=== PATIENT | female | born 2000 | race Caucasian/White ===

== ENCOUNTER 2018-08-18 10:51 | Inpatient (IN) | payer OTHER ==
[~2018-08-18] VITALS: Ht 160 cm; Wt 76.9 kg
[2018-08-18 11:00] VITALS: BP 104/58
[2018-08-18] MEDS ORDERED: MORPHINE SULFATE 4 MG/ML VIAL. IV PRN (11:30)
--- NOTE | 2018-08-18 12:29 | PDOC2 ---
CONSULT Date of Consult Date of Consult DATE: 08/18/18 TIME: 12:21 Reason for Consult Reason for Consult: RLQ abd pain Referring Physician Referring Physician: Arnie Identification/Chief Complaint Chief Complaint RLQ abd pain Source Source: Chart review, Patient History of Present Illness Reason for Visit: 18 yo F with c/o RLQ abd pain beginning at 0200 today. Presented to ER at [facility] transferred to [facility]. Reports diffuse intermittent abd pain last few weeks. No N/V. Normal stools, but has had some constipation. No sick contacts. No previous endoscopy. Past Medical History Past Medical History recent and delivery, breast feeding Past Surgical History Past Surgical History: No pertinent history Family History Family History: Diabetes, Heart Disease Social History No ALCOHOL: none Current Medications Current Medications Current Medications Sodium Chloride 1,000 ml @ 100 mls/hr Q10H IV ; Start 08/18/18 at 11:30 Morphine Sulfate (Morphine Sulfate) 4 mg PRN Q2HR PRN IV PAIN; Start 08/18/18 at 11:30 Oxycodone/ Acetaminophen (Percocet 5/325) 1 tab PRN Q6HRS PRN PO PAIN; Start 08/18/18 at 11:30 Allergies Allergies: Coded Allergies: No Known Drug Allergies (Unverified , 08/18/18) ROS Gastrointestinal: Yes Abdominal Pain Physical Exam General: Alert, Oriented X3, Cooperative, No acute distress HEENT: Atraumatic Lungs: Normal air movement Abdomen: Soft, Other (mild TTP RLQ) Extremities: No clubbing, No cyanosis Skin: No rashes, No breakdown Neuro: Normal speech, Sensation intact Psych/Mental Status: Mental status NL, Mood NL Vitals VITALS Vital Signs Date Time Temp Pulse Resp B/P (MAP) Pulse Ox O2 Delivery O2 Flow Rate FiO2 08/18/18 11:00 98.1 79 18 104/58 (73) 96 Room Air 98.1 Labs Labs WBC 10 at [facility] Images Images CT reviewed with radiology-appears to have normal appendix, cecal wall thickening, free fluid RLQ, gallstones Assessment/Plan Assessment/Plan Suspect colitis-recommend abx and bowel rest, supportive care. Will value GI assessment. Will check CEA level, although colon mass low probability. May benefit from colonoscopy, but will defer to GI. May benefit from stool studies , but will defer to GI. Appendix appears to be unremarkable, by what can be seen on CT. If not improved, will consider exploration. Does not appear to have any pain referable to biliary system. Thanks for consult! MICKEY ESCOBEDO MD Aug 18, 2018 12:29
[2018-08-18] MEDS: IV NORMAL SALINE 1000ML BAG 1,000 ML IV SCH (12:33)
--- NOTE | 2018-08-18 13:54 | PDOC2 ---
MARKY MURRAY 08/18/18 1354: GI CONSULT Reason For Consult: Colon mass on CT HPI: HPI: 18 y/o female from [facility]. Acute onset of RLQ pain at 2:00 a.m. Labs: normal WBC, Hgb 11.7, normal LFTs except Alk Vivian 188, normal lipase. On CT: masslike wall thickening at anterior aspect of ascending colon including cecal region w/ adjacent edema and free fluid w/ borderline dilated appendix. Also noted contracted GB w/ gallstones and mild prominence of intrahepatic bile ducts w/ possible stones within the GB neck to cystic bile duct region and mild full ness of right adnexa. Surgery following, reviewed note - CT reviewed w/ radiology w/ normal appendix and cecal wall thickening. Suspects colitis, checking CEA level. She tells me no GI history. Had some reflux during (gave to baby girl Rafaela 1 month ago). No dysphagia, n/v, chronic abd pain, diarrhea, or melena. Had some constipation - had two stools yesterday, noted a little red blood with the first. No previous scopes. No GB, liver, or pancreas history she's aware of. PMH: PMH: denies FH: Family History: Other (mother - cholecystectomy, cousin - "always plugged up") Social History: Smoke: No ALCOHOL: none ROS: GEN: Denies fevers, chills, sweats HEENT: Denies blurred vision, sore throat CV: Denies chest pain RESP: Denies shortness of air, cough GI: Per HPI : Denies hematuria, dysuria ENDO: Denies weight changes NEURO: Denies confusion, dizziness MSK: Denies weakness, joint pain/swelling SKIN: Denies jaundice, pruritus Vitals: Vitals: Vital Signs Date Time Temp Pulse Resp B/P (MAP) Pulse Ox O2 Delivery O2 Flow Rate FiO2 08/18/18 12:34 96 Room Air 08/18/18 11:00 98.1 79 18 104/58 (73) 98.1 Labs: Labs: Per HPI. Allergies: Coded Allergies: No Known Drug Allergies (Unverified , 08/18/18) Medications: Current Medications Medications (Trade) Dose Ordered Sig/Abdulkadir Route PRN Reason Start Time Stop Time Status Last Admin Dose Admin Sodium Chloride 1,000 ml @ 100 mls/hr Q10H IV 08/18/18 11:30 08/18/18 12:33 Morphine Sulfate (Morphine Sulfate) 4 mg PRN Q2HR PRN IV PAIN 08/18/18 11:30 08/18/18 12:34 Imaging: Imaging: Per HPI. PE: GEN: NAD - giving baby a bottle HEENT: Atraumatic, PERRL LUNGS: CTAB HEART: RRR ABD: NABS, S/ND, right mid abdomen to RLQ discomfort EXTREMITY: No edema SKIN: No rashes, no jaundice NEURO/PSYCH: A & O 3 A/P: A/P: RLQ pain Abnormal CT - thickening in right colon/cecum (?dilated appendix), also noted gallstones -- Not having diarrhea - in fact, seems more constipated. Reviewed w/ Dr. Matos earlier - observe on atbx for now, surgery following - consider exploration or colonoscopy later on. ARTURO MATOS MD 08/18/18 1357: MARKY MURRAY Aug 18, 2018 13:54 ARTURO MATOS MD Aug 18, 2018 13:57
--- NOTE | 2018-08-18 14:21 | PDOC1 ---
History and Physical Date of Admission Date of Admission DATE: 08/18/18 TIME: 14:18 Source Source: Chart review, Patient History of Present Illness History of Present Illness Ms. Pedro has is 6 weeks post-, awoke this AM with severe RLQ pain , abd pain diffuse Surgery has seen, CT reviewed, discussed with GI new RLQ mass or edema, poss colitis, poss atypical appy, but pain improving , Past Medical History Cardiovascular: No pertinent hx Pulmonary: No pertinent hx GI: No pertinent hx Hepatobiliary: No pertinent hx Psych: No pertinent hx Grav: 1 Para: 1 Past Surgical History Past Surgical History: No pertinent history Family History Family History: Diabetes, Heart Disease Social History Smoke: No ALCOHOL: none Current Medications Current Medications Current Medications Sodium Chloride 1,000 ml @ 100 mls/hr Q10H IV Last administered on 08/18/18at 12:33; Start 08/18/18 at 11:30 Morphine Sulfate (Morphine Sulfate) 4 mg PRN Q2HR PRN IV PAIN Last administered on 08/18/18at 12:34; Start 08/18/18 at 11:30 Oxycodone/ Acetaminophen (Percocet 5/325) 1 tab PRN Q6HRS PRN PO PAIN; Start 08/18/18 at 11:30 Ciprofloxacin (Cipro) 500 mg BID PO ; Start 08/18/18 at 14:00 Metronidazole (Flagyl) 500 mg Q12HR PO ; Start 08/18/18 at 14:00 Allergies Allergies: Coded Allergies: No Known Drug Allergies (Unverified , 08/18/18) ROS General: No: Chills, Night Sweats, Fatigue, Malaise, Appetite, Other PSYCHOLOGICAL ROS: No: Anxiety, Behavioral Disorder, Concentration difficultie , Decreased libido, Depression, Disorientation, Hallucinations, Hostility, Irritablity, Memory difficulties, Mood Swings, Obsessive thoughts, Physical abuse, Sexual abuse, Sleep disturbances, Suicidal ideation, Other Eyes: No Blurry vision, No Decreased vision, No Double vision, No Dry eyes, No Excessive tearing, No Eye Pain, No Itchy Eyes, No Loss of vision, No Photophobia , No Scotomata, No Uses contacts, No Uses glasses, No Other HEENT: No: Heacaches, Visual Changes, Hearing change, Nasal congestion, Nasal discharge, Oral lesions, Sinus pain, Sore Throat, Epistaxis, Sneezing, Snoring, Tinnitus, Vertigo, Vocal changes, Other Respiratory: YES: Cough; No: Hemoptysis, Orthopnea, Pleuritic Pain, Shortness of breath, SOB with excertion, Sputum Changes, Stridor, Tachypnea, Wheezing, Other Cardiovascular: No Chest Pain, No Palpitations, No Orthopnea, No Paroxysmal Noc. Dyspnea, No Edema, No Lt Headedness, No Other Gastrointestinal: Yes Nausea, Yes Abdominal Pain; No Vomiting, No Diarrhea, No Constipation, No Melena, No Hematochezia, No Other Genitourinary: No Dysuria, No Frequency, No Incontinence, No Hematuria, No Retention, No Discharge, No Urgency, No Pain, No Flank Pain, No Other, No , No , No , No , No , No , No Musculoskeletal: No Gait Disturbance, No Joint Pain, No Joint Stiffness, No Joint Swelling, No Muscle Pain, No Muscular Weakness, No Pain In:, No Swelling In:, No Other Neurological: No Behavorial Changes, No Bowel/Bladder ControlChng, No Confusion , No Dizziness, No Gait Disturbance, No Headaches, No Impaired Coord/balance, No Memory Loss, No Numbness/Tingling, No Seizures, No Speech Problems, No Tremors, No Visual Changes, No Weakness, No Other Skin: No Dry Skin, No Eczema, No Hair Changes, No Lumps, No Mole Changes, No Mottling, No Nail Changes, No Pruritus, No Rash, No Skin Lesion Changes, No Other, No Acne Physical Exam General: Alert, Cooperative, No acute distress HEENT: PERRLA, EOMI Lungs: Clear to auscultation Heart: S1S2, no murmurs Abdomen: Soft, Other (tender RLQ) Extremities: No clubbing Skin: No rashes, No breakdown Neuro: Normal gait, Normal tone Psych/Mental Status: Mood NL Vitals Vitals Vital Signs Date Time Temp Pulse Resp B/P (MAP) Pulse Ox O2 Delivery O2 Flow Rate FiO2 08/18/18 12:34 96 Room Air 08/18/18 11:00 98.1 79 18 104/58 (73) 98.1 Labs Labs : normal WBC, Hgb 11.7, normal LFTs except Alk Vivian 188, normal lipase. VTE Prophylaxis Ordered VTE Prophylaxis Devices: No VTE Pharmacological Prophylaxi: No Assessment/Plan Assessment/Plan Acute abdominal pain, new RLQ pain that is possibly improved On CT: masslike wall thickening at anterior aspect of ascending colon including cecal region w/ adjacent edema and free fluid w/ borderline dilated appendix. Also noted contracted GB w/ gallstones and mild prominence of intrahepatic bile ducts w/ possible stones within the GB neck to cystic bile duct region and mild full ness of right adnexa. GI and Colon consult PORFIRIO GOODSON MD Aug 18, 2018 14:21
[2018-08-18 15:00] VITALS: BP 115/73
[2018-08-18] MEDS: metroNIDAZOLE 500 MG TABLET PO SCH ×2 (16:07→21:29)
[2018-08-18] MEDS: CIPROFLOXACIN HCL 250 MG TABLET. PO SCH ×2 (16:07→21:29)
[2018-08-18] MEDS: oxyCODONE/APAP 5/325 1 TAB TABLET PO PRN (16:37)
[2018-08-18 19:00] VITALS: BP 110/71
[2018-08-18] MEDS ORDERED: PROMETHAZINE 12.5 MG TABLET. PO PRN (20:00)
[2018-08-18] MEDS ORDERED: ONDANSETRON PF 4 MG/2 ML VIAL. IV PRN (20:00)
[2018-08-18 23:00] VITALS: BP 116/70
[2018-08-19] MEDS: IV NORMAL SALINE 1000ML BAG 1,000 ML IV SCH ×2 (01:16→07:30)
[2018-08-19 03:00] VITALS: BP 100/62
[2018-08-19] MEDS: oxyCODONE/APAP 5/325 1 TAB TABLET PO PRN ×3 (04:45→20:37)
[2018-08-19 07:15] VITALS: BP 114/73
[2018-08-19] MEDS: CIPROFLOXACIN HCL 250 MG TABLET. PO SCH (08:02)
[2018-08-19] MEDS: metroNIDAZOLE 500 MG TABLET PO SCH ×2 (08:02→20:36)
--- NOTE | 2018-08-19 08:41 | PDOC ---
SURGICAL PROGRESS NOTE Subjective Pt with c/o unchanged RLQ abd pain, no N/V, no stools Vital Signs Vital Signs Date Time Temp Pulse Resp B/P (MAP) Pulse Ox O2 Delivery O2 Flow Rate FiO2 08/19/18 07:15 99.5 98 16 114/73 (87) 93 Room Air 99.5 I&O Intake and Output 08/19/18 07:00 Intake Total 1200 ml Balance 1200 ml Intake Oral 0 ml IV Total 1200 ml # Voids 6 General: Alert, Oriented X3, Cooperative, No acute distress Abdomen: Soft, Other (TTP RLQ) Problem List RLQ abd pain cont abx appreciate GI, defer additional testing to them. MICKEY ESCOBEDO MD Aug 19, 2018 08:41
[2018-08-19 11:00] VITALS: BP 105/70
--- NOTE | 2018-08-19 12:34 | PDOC ---
PROGRESS NOTES Chief Complaint Chief Complaint acute abd pain RLQ pain post 4 weeks poss microperf or meckels, or diverticulitis, consult ID discussed with IR, not sure if enough free fluid to have any benefit of drainage History of Present Illness History of Present Illness CT READ FROM 08/18, Masslike wall thickening is identified at the anterior aspect of the ascending colon including the cecal region with adjacent edema and free fluid. In addition the patient's appendix is visualized in this region and is borderline dilated measuring up to approximately 6-7 mm. Given the masslike thickening of the colon the colonic process appears to be the dominant inflammatory process within the region and this area of masslike thickening could be secondary to a focal colitis. A colonic neoplasm would be rare in a patient of this age but this does have a focal masslike appearance therefore a follow-up could be obtained to ensure this resolves to exclude neoplastic causes. The patient's appendix is also seen adjacent to this region and is borderline dilated and does extend through the region of edema and fluid. Given the borderline size as well as the adjacent edema and fluid additional inflammation to the appendix from appendicitis is possible however this finding does appear less severe than the adjacent colonic process. Vitals Vitals Vital Signs Date Time Temp Pulse Resp B/P (MAP) Pulse Ox O2 Delivery O2 Flow Rate FiO2 08/19/18 11:00 97.7 81 16 105/70 (82) 96 Room Air 97.7 Physical Exam General: Alert, Oriented X3, Cooperative, No acute distress Abdomen: Soft, Other (TTP RLQ) Extremities: No clubbing Skin: No rashes, No breakdown Comment Review of Relevant I have reviewed the following items david (where applicable) has been applied. Medications Current Medications Sodium Chloride 1,000 ml @ 100 mls/hr Q10H IV Last administered on 08/19/18at 01:16; Start 08/18/18 at 11:30 Morphine Sulfate (Morphine Sulfate) 4 mg PRN Q2HR PRN IV PAIN Last administered on 08/18/18 12:34; Start 08/18/18 at 11:30 Oxycodone/ Acetaminophen (Percocet 5/325) 1 tab PRN Q6HRS PRN PO PAIN Last administered on 08/19/18 04:45; Start 08/18/18 at 11:30 Ciprofloxacin (Cipro) 500 mg BID PO Last administered on 08/19/18at 08:02; Start 08/18/18 at 14:00 Metronidazole (Flagyl) 500 mg Q12HR PO Last administered on 08/19/18at 08:02; Start 08/18/18 at 14:00 Ondansetron HCl (Zofran) 4 mg PRN Q6HRS PRN IV NAUSEA/VOMITING 1ST CHOICE Last administered on 08/18/18at 20:31; Start 08/18/18 at 20:00 Promethazine HCl (Phenergan) 12.5 mg PRN Q6HRS PRN PO NAUSEA/VOMITING 2ND CHOICE; Start 08/18/18 at 20:00 Lactobacillus Rhamnosus (Culturelle) 1 cap BID PO ; Start 08/19/18 at 21:00 Vitals/I & O Vital Sign - Last 24 Hours 08/18/18 08/18/18 08/18/18 08/18/18 12:34 13:00 15:00 16:37 Temp 98.8 98.8 Pulse 75 Resp 18 B/P (MAP) 115/73 (87) Pulse Ox 96 96 98 98 O2 Delivery Room Air Room Air Room Air Room Air 08/18/18 08/18/18 08/18/18 08/19/18 19:00 20:00 23:00 03:00 Temp 97.5 97.7 97.9 97.5 97.7 97.9 Pulse 72 63 81 Resp 18 18 18 B/P (MAP) 110/71 (84) 116/70 (85) 100/62 (75) Pulse Ox 95 96 93 O2 Delivery Room Air Room Air Room Air Room Air 08/19/18 08/19/18 08/19/18 08/19/18 04:45 05:45 07:00 07:15 Temp 99.5 99.5 Pulse 98 Resp 20 20 16 B/P (MAP) 114/73 (87) Pulse Ox 93 93 93 O2 Delivery Room Air Room Air Room Air Room Air 08/19/18 11:00 Temp 97.7 97.7 Pulse 81 Resp 16 B/P (MAP) 105/70 (82) Pulse Ox 96 O2 Delivery Room Air Intake and Output 08/18/18 08/18/18 08/19/18 15:00 23:00 07:00 Intake Total 1200 ml Balance 1200 ml PORFIRIO GOODSON MD Aug 19, 2018 12:34
--- NOTE | 2018-08-19 12:45 | PDOC ---
Subjective: Subjective: Feels the same. RLQ pain, also some LLQ and in the middle. No stools, no nausea. Hasn't eaten. Objective: Vital Signs: Vital Signs Date Time Temp Pulse Resp B/P (MAP) Pulse Ox O2 Delivery O2 Flow Rate FiO2 08/19/18 12:32 Room Air 08/19/18 11:00 97.7 81 16 105/70 (82) 96 97.7 PE: GEN: NAD LUNGS: CTAB HEART: RRR ABD: RLQ, periumbilical, and LLQ discomfort NEURO/PSYCH: A & O 3 A/P: RLQ pain w/ abnormal CT -- Reviewed w/ Propeck - check Meckel's scan. Plans to recheck labs. MARKY MURRAY Aug 19, 2018 12:45
[2018-08-19 13:48] LABS: BASO % 1 % (0-3); EOS # 0.1 x10^3/uL (0.0-0.7); EOS % 2 % (0-3); HEMATOCRIT 30.5 % (36.0-47.0); HEMOGLOBIN 9.8 g/dL (12.0-15.5); LYMPH # 1.3 x10^3/uL (1.0-4.8); LYMPH % 19 % (24-48); MEAN CORPUSCULAR HEMOGLOBIN 24 pg (25-35); MEAN CORPUSCULAR HGB CONC 32 g/dL (31-37); MEAN CORPUSCULAR VOLUME 74 fL (79-100); MONO # 0.7 x10^3/uL (0.0-1.1); MONO % 10 % (0-9); NEUT # 4.7 x10^3uL (1.8-7.7); NEUT % 68 % (31-73); PLATELET COUNT 283 x10^3/uL (140-400); RED CELL DISTRIBUTION WIDTH 18.4 % (11.5-14.5); WHITE BLOOD COUNT 6.8 x10^3/uL (4.0-11.0)
[2018-08-19 13:55] LABS: ALBUMIN 2.6 g/dL (3.4-5.0); ALBUMIN/GLOBULIN RATIO 0.6 (1.0-1.7); CREATININE 0.7 mg/dL (0.6-1.0); GFR 106.7; POTASSIUM 3.9 mmol/L (3.5-5.1); TOTAL BILIRUBIN 0.3 mg/dL (0.2-1.0); TOTAL PROTEIN 7.3 g/dL (6.4-8.2)
[2018-08-19] MEDS: AMINO AC 3%/ELECTROLYTE/GLYCER 1,000 ML IV SCH (13:56)
--- NOTE | 2018-08-19 14:13 | PDOC ---
Infectious Disease Note Vital Sign Vital Signs Vital Signs Date Time Temp Pulse Resp B/P (MAP) Pulse Ox O2 Delivery O2 Flow Rate FiO2 08/19/18 13:54 Room Air 08/19/18 11:00 97.7 81 16 105/70 (82) 96 97.7 Labs Lab Laboratory Tests Test 08/19/18 13:20 White Blood Count 6.8 x10^3/uL (4.0-11.0) Red Blood Count 4.10 x10^6/uL (3.50-5.40) Hemoglobin 9.8 g/dL (12.0-15.5) Hematocrit 30.5 % (36.0-47.0) Mean Corpuscular Volume 74 fL (79-100) Mean Corpuscular Hemoglobin 24 pg (25-35) Mean Corpuscular Hemoglobin Concent 32 g/dL (31-37) Red Cell Distribution Width 18.4 % (11.5-14.5) Platelet Count 283 x10^3/uL (140-400) Neutrophils (%) (Auto) 68 % (31-73) Lymphocytes (%) (Auto) 19 % (24-48) Monocytes (%) (Auto) 10 % (0-9) Eosinophils (%) (Auto) 2 % (0-3) Basophils (%) (Auto) 1 % (0-3) Neutrophils # (Auto) 4.7 x10^3uL (1.8-7.7) Lymphocytes # (Auto) 1.3 x10^3/uL (1.0-4.8) Monocytes # (Auto) 0.7 x10^3/uL (0.0-1.1) Eosinophils # (Auto) 0.1 x10^3/uL (0.0-0.7) Basophils # (Auto) 0.0 x10^3/uL (0.0-0.2) Sodium Level 142 mmol/L (136-145) Potassium Level 3.9 mmol/L (3.5-5.1) Chloride Level 106 mmol/L (98-107) Carbon Dioxide Level 25 mmol/L (21-32) Anion Gap 11 (6-14) Blood Urea Nitrogen 5 mg/dL (7-20) Creatinine 0.7 mg/dL (0.6-1.0) Estimated GFR (Cockcroft-Gault) 106.7 BUN/Creatinine Ratio 7 (6-20) Glucose Level 78 mg/dL (70-99) Calcium Level 9.0 mg/dL (8.5-10.1) Total Bilirubin 0.3 mg/dL (0.2-1.0) Aspartate Amino Transf (AST/SGOT) 25 U/L (15-37) Alanine Aminotransferase (ALT/SGPT) 22 U/L (14-59) Alkaline Phosphatase 157 U/L (46-116) Total Protein 7.3 g/dL (6.4-8.2) Albumin 2.6 g/dL (3.4-5.0) Albumin/Globulin Ratio 0.6 (1.0-1.7) Objective Assessment Abdominal mass, ? etiology, crohns with perforation vs colitis vs tumor Abdominal pain Post Plan Plan of Care cont flagyl, change cipro to rocephine supportive care further workup pending JHOAN MCCORD MD Aug 19, 2018 14:13
[2018-08-19 15:00] VITALS: BP 108/71
[2018-08-19] MEDS: cefTRIAXone IV Push 1 GM VIAL. IVP SCH (15:49)
--- NOTE | 2018-08-19 16:32 | PDOC ---
Provider Note Provider Note IR NOTE Inflammatory changes and small amount of free fluid is seen in RLQ./Pelvis. WBC normal. No fever > [address] Eti[address] is unclear. CT reviewed. No drainable collection in RLQ. JOSEPH ALEXANDER MD Aug 19, 2018 16:32
[2018-08-19 19:00] VITALS: BP 102/68
[2018-08-19] MEDS ORDERED: ACETAMINOPHEN 500 MG TABLET PO PRN (19:15)
[2018-08-19] MEDS: LACTOBACILLUS RHAMNOSUS GG 1 CAPSULE. PO SCH (20:36)
[2018-08-19 23:00] VITALS: BP 103/70
[2018-08-20] MEDS: AMINO AC 3%/ELECTROLYTE/GLYCER 1,000 ML IV SCH ×2 (02:35→12:37)
[2018-08-20 02:44] VITALS: BP 123/74
--- NOTE | 2018-08-20 03:18 | CONS ---
DATE OF CONSULTATION: 08/19/2018 REQUESTING PHYSICIAN: Dr. Gaitan. REASON FOR CONSULTATION: Abdominal mass. HISTORY OF PRESENT ILLNESS: This is a 18-year-old female who had a recent vaginal delivery about 6 weeks ago, who woke up yesterday morning at 2 in the morning with severe abdominal pain. The patient was seen at [place]. CAT scan was done and was transferred here for further management. She did not have any fever, did not have any nausea, vomiting, diarrhea, chest pain, shortness of breath. No other complaints. The patient's CT showed mass-like wall thickening identified in the anterior aspect of the ascending colon including the cecal region with adjacent edema and free fluid. The patient has been put on Cipro and Flagyl. The patient denies any other complaints. The patient denies any headache, visual symptoms. Denies any chest pain, denies any vaginal discharge. Denies any problem with the other than about 2-3 urinary tract infections and she had taken antibiotics for that. PAST MEDICAL HISTORY: Unremarkable other than 6 weeks and 3 or so UTI with antibiotic use. SOCIAL HISTORY: Negative for smoking, alcohol, or illicit drug use. ALLERGIES: No known drug allergies. CURRENT MEDICATIONS: The patient is on Cipro and Flagyl. REVIEW OF SYSTEMS: As per HPI, all other systems reviewed are negative. PHYSICAL EXAMINATION: GENERAL: Alert, oriented female, not in distress. VITAL SIGNS: Stable with a T-max 99.5. HEENT: NAD. NECK: Supple, no JVP, no lymphadenopathy. LUNGS: Clear. HEART: S1, S2 regular. ABDOMEN: Mild diffuse tenderness present. No rebound, guarding, no organomegaly appreciated. EXTREMITIES: No edema, cyanosis. SKIN: Unremarkable. NEUROLOGIC: The patient has no focal neurologic deficit. LABORATORY DATA: White count is 6.8, hemoglobin 9.8, platelets are normal. BUN and creatinine is normal. Liver functions are normal. IMPRESSION: 1. Abdominal pain. 2. Abdominal mass-like dilatation of the ascending colon at the cecal region with fluid, probably possibility of Crohn's disease with perforation is there. Also, colitis is another possibility and a solid mass is another possibility. 3. 6 weeks . RECOMMENDATIONS: I will change Cipro to Rocephin. Continue Flagyl. Supportive care and further workup, i.e., laparoscopic look around and/or radiographic needle aspiration has been planned. discussion with the family done at the bedside. Thank you very much, Dr. Gaitan for giving me the opportunity to participate in this patient's care. JHOAN MCCORD MD DR: MADI/keyonna JOB#: [id number] / [id number]
[2018-08-20 07:00] VITALS: BP 118/80
--- NOTE | 2018-08-20 08:19 | RAD ---
Radionuclide Meckel scan, 08/20/2018: HISTORY: Abdominal pain Imaging of the abdomen and pelvis was performed following IV injection of 10.6 mCi of technetium 99m pertechnetate. Normal gastric uptake is seen. Activity eventually extends from the stomach into the proximal small bowel. No abnormal abdominal or pelvic activity is seen to suggest a Meckel's diverticulum. IMPRESSION: Negative Meckel's scan. Electronically signed by: Hamilton Cherry MD (08/20/2018 8:15 AM) [facility]
[2018-08-20] MEDS: LACTOBACILLUS RHAMNOSUS GG 1 CAPSULE. PO SCH (08:45)
[2018-08-20] MEDS: metroNIDAZOLE 500 MG TABLET PO SCH (08:45)
--- NOTE | 2018-08-20 09:27 | PDOC ---
Infectious Disease Note Subjective Subjective feeling better ROS ROS no n/v/d/sob Vital Sign Vital Signs Vital Signs Date Time Temp Pulse Resp B/P (MAP) Pulse Ox O2 Delivery O2 Flow Rate FiO2 08/20/18 07:00 98.7 75 16 118/80 (93) 95 Room Air 98.7 Physical Exam PHYSICAL EXAM GENERAL: Alert, oriented female, not in distress. VITAL SIGNS: Stable HEENT: NAD. NECK: Supple, no JVP, no lymphadenopathy. LUNGS: Clear. HEART: S1, S2 regular. ABDOMEN: Mild diffuse tenderness present. No rebound, guarding, no organomegaly appreciated. EXTREMITIES: No edema, cyanosis. SKIN: Unremarkable. NEUROLOGIC: The patient has no focal neurologic deficit. Labs Lab Laboratory Tests Test 08/19/18 13:20 White Blood Count 6.8 x10^3/uL (4.0-11.0) Red Blood Count 4.10 x10^6/uL (3.50-5.40) Hemoglobin 9.8 g/dL (12.0-15.5) Hematocrit 30.5 % (36.0-47.0) Mean Corpuscular Volume 74 fL (79-100) Mean Corpuscular Hemoglobin 24 pg (25-35) Mean Corpuscular Hemoglobin Concent 32 g/dL (31-37) Red Cell Distribution Width 18.4 % (11.5-14.5) Platelet Count 283 x10^3/uL (140-400) Neutrophils (%) (Auto) 68 % (31-73) Lymphocytes (%) (Auto) 19 % (24-48) Monocytes (%) (Auto) 10 % (0-9) Eosinophils (%) (Auto) 2 % (0-3) Basophils (%) (Auto) 1 % (0-3) Neutrophils # (Auto) 4.7 x10^3uL (1.8-7.7) Lymphocytes # (Auto) 1.3 x10^3/uL (1.0-4.8) Monocytes # (Auto) 0.7 x10^3/uL (0.0-1.1) Eosinophils # (Auto) 0.1 x10^3/uL (0.0-0.7) Basophils # (Auto) 0.0 x10^3/uL (0.0-0.2) Sodium Level 142 mmol/L (136-145) Potassium Level 3.9 mmol/L (3.5-5.1) Chloride Level 106 mmol/L (98-107) Carbon Dioxide Level 25 mmol/L (21-32) Anion Gap 11 (6-14) Blood Urea Nitrogen 5 mg/dL (7-20) Creatinine 0.7 mg/dL (0.6-1.0) Estimated GFR (Cockcroft-Gault) 106.7 BUN/Creatinine Ratio 7 (6-20) Glucose Level 78 mg/dL (70-99) Calcium Level 9.0 mg/dL (8.5-10.1) Total Bilirubin 0.3 mg/dL (0.2-1.0) Aspartate Amino Transf (AST/SGOT) 25 U/L (15-37) Alanine Aminotransferase (ALT/SGPT) 22 U/L (14-59) Alkaline Phosphatase 157 U/L (46-116) Total Protein 7.3 g/dL (6.4-8.2) Albumin 2.6 g/dL (3.4-5.0) Albumin/Globulin Ratio 0.6 (1.0-1.7) Objective Assessment Abdominal mass, ? etiology, crohns with perforation vs colitis vs tumor Abdominal pain Post Plan Plan of Care cont flagyl, rocephine supportive care further workup pending d/w mother JHOAN MCCORD MD Aug 20, 2018 09:27
[2018-08-20 11:00] VITALS: BP 114/83
--- NOTE | 2018-08-20 12:39 | PDOC ---
Subjective: Subjective: Pain is better, feels better overall, wants to go home to her baby. Objective: Objective: Called by RN a couple times - doesn't want PPN, wants to advance diet. D/w Dr. Kit son - wonders about colonoscopy vs expl lap. Vital Signs: Vital Signs Date Time Temp Pulse Resp B/P (MAP) Pulse Ox O2 Delivery O2 Flow Rate FiO2 08/20/18 11:00 97.7 70 16 114/83 (93) 97 Room Air 97.7 Labs: Laboratory Tests Test 08/19/18 13:20 White Blood Count 6.8 x10^3/uL Red Blood Count 4.10 x10^6/uL Hemoglobin 9.8 g/dL Hematocrit 30.5 % Mean Corpuscular Volume 74 fL Mean Corpuscular Hemoglobin 24 pg Mean Corpuscular Hemoglobin Concent 32 g/dL Red Cell Distribution Width 18.4 % Platelet Count 283 x10^3/uL Neutrophils (%) (Auto) 68 % Lymphocytes (%) (Auto) 19 % Monocytes (%) (Auto) 10 % Eosinophils (%) (Auto) 2 % Basophils (%) (Auto) 1 % Neutrophils # (Auto) 4.7 x10^3uL Lymphocytes # (Auto) 1.3 x10^3/uL Monocytes # (Auto) 0.7 x10^3/uL Eosinophils # (Auto) 0.1 x10^3/uL Basophils # (Auto) 0.0 x10^3/uL Sodium Level 142 mmol/L Potassium Level 3.9 mmol/L Chloride Level 106 mmol/L Carbon Dioxide Level 25 mmol/L Anion Gap 11 Blood Urea Nitrogen 5 mg/dL Creatinine 0.7 mg/dL Estimated GFR (Cockcroft-Gault) 106.7 BUN/Creatinine Ratio 7 Glucose Level 78 mg/dL Calcium Level 9.0 mg/dL Total Bilirubin 0.3 mg/dL Aspartate Amino Transf (AST/SGOT) 25 U/L Alanine Aminotransferase (ALT/SGPT) 22 U/L Alkaline Phosphatase 157 U/L Total Protein 7.3 g/dL Albumin 2.6 g/dL Albumin/Globulin Ratio 0.6 Imaging: IMPRESSION: Negative Meckel's scan. PE: GEN: NAD LUNGS: CTAB HEART: RRR ABD: NABS, S/ND/NT NEURO/PSYCH: A & O 3 A/P: RLQ pain w/ abnormal CT -- Pain resolved. Reviewed w/ Dr. Shwana WHEELER, consider DC if tolerates. Consider SBS and/or colonoscopy as inpt or outpt. MARKY MURRAY Aug 20, 2018 12:39
[2018-08-20] MEDS ORDERED: AMOX1TAB61 PO (14:22)
[2018-08-20] MEDS ORDERED: LACT1CAP19 PO (14:22)
[2018-08-20] MEDS: cefTRIAXone IV Push 1 GM VIAL. IVP SCH (14:26)
--- NOTE | 2018-08-20 14:55 | PDOC ---
SURGICAL PROGRESS NOTE Subjective Pt feels better, chase some PO Vital Signs Vital Signs Date Time Temp Pulse Resp B/P (MAP) Pulse Ox O2 Delivery O2 Flow Rate FiO2 08/20/18 11:00 97.7 70 16 114/83 (93) 97 Room Air 97.7 I&O Intake and Output 08/20/18 07:00 Intake Total 880 ml Balance 880 ml Intake Oral 0 ml IV Total 880 ml # Voids 3 General: Alert, Oriented X3, Cooperative, No acute distress Abdomen: Soft, Other (mild TTP RLQ) Labs Laboratory Tests Test 08/19/18 13:20 White Blood Count 6.8 x10^3/uL (4.0-11.0) Red Blood Count 4.10 x10^6/uL (3.50-5.40) Hemoglobin 9.8 g/dL (12.0-15.5) Hematocrit 30.5 % (36.0-47.0) Mean Corpuscular Volume 74 fL (79-100) Mean Corpuscular Hemoglobin 24 pg (25-35) Mean Corpuscular Hemoglobin Concent 32 g/dL (31-37) Red Cell Distribution Width 18.4 % (11.5-14.5) Platelet Count 283 x10^3/uL (140-400) Neutrophils (%) (Auto) 68 % (31-73) Lymphocytes (%) (Auto) 19 % (24-48) Monocytes (%) (Auto) 10 % (0-9) Eosinophils (%) (Auto) 2 % (0-3) Basophils (%) (Auto) 1 % (0-3) Neutrophils # (Auto) 4.7 x10^3uL (1.8-7.7) Lymphocytes # (Auto) 1.3 x10^3/uL (1.0-4.8) Monocytes # (Auto) 0.7 x10^3/uL (0.0-1.1) Eosinophils # (Auto) 0.1 x10^3/uL (0.0-0.7) Basophils # (Auto) 0.0 x10^3/uL (0.0-0.2) Sodium Level 142 mmol/L (136-145) Potassium Level 3.9 mmol/L (3.5-5.1) Chloride Level 106 mmol/L (98-107) Carbon Dioxide Level 25 mmol/L (21-32) Anion Gap 11 (6-14) Blood Urea Nitrogen 5 mg/dL (7-20) Creatinine 0.7 mg/dL (0.6-1.0) Estimated GFR (Cockcroft-Gault) 106.7 BUN/Creatinine Ratio 7 (6-20) Glucose Level 78 mg/dL (70-99) Calcium Level 9.0 mg/dL (8.5-10.1) Total Bilirubin 0.3 mg/dL (0.2-1.0) Aspartate Amino Transf (AST/SGOT) 25 U/L (15-37) Alanine Aminotransferase (ALT/SGPT) 22 U/L (14-59) Alkaline Phosphatase 157 U/L (46-116) Total Protein 7.3 g/dL (6.4-8.2) Albumin 2.6 g/dL (3.4-5.0) Albumin/Globulin Ratio 0.6 (1.0-1.7) Problem List RLQ pain, improved OK to d/c and outpt f/u with GI no surgical plans MICKEY ESCOBEDO MD Aug 20, 2018 14:55
== END 2018-08-20 15:37 | disposition home or self-care (01) | DRG 391 ==
LOC: 4 NORTH 10:51
PROVIDERS: ADMIT Internal Medicine; ATTEND Internal Medicine
DX: R10.9 Unspecified abdominal pain (principal); E43 Unspecified severe protein-calorie malnutrition; K59.00 Constipation, unspecified; K80.20 Calculus of gallbladder without cholecystitis without obstruction; Z83.3 Family history of diabetes mellitus; Z87.440 Personal history of urinary (tract) infections; Z68.30 Body mass index [BMI] 30.0-30.9, adult; Z82.49 Family history of ischemic heart disease and other diseases of the circulatory system; Z79.899 Other long term (current) drug therapy
CPT/HCPCS: 36415; 78290; 80053; 82378; 85025; 96374; A9512; J0696; J2270; J2405; J7030